=== PATIENT | female | born 1955 | race Caucasian/White ===

== ENCOUNTER → 2017-10-08 | Outpatient (CLI) | payer BC ==
[~2017-10-08] MED LIST: ASPI-232 PO; CALCTAB5 PO; IBUP-1050 PO; MULT-845 PO; PRVC/40 PO; TPM25 PO
--- NOTE | 2017-10-08 12:28 | DIAGNOSTIC IMAGING REPORT ---
ABD/PELVIS NO IV OR ORAL CONT CLINICAL HISTORY: 62 years-old Female presenting with RENAL CALCULUS. TECHNIQUE: Multidetector CT of the abdomen and pelvis was performed without the use of intravenous contrast. IV contrast: None. A dose lowering technique was used consistent with the principles of ALARA (as low as reasonably achievable). COMPARISON: None. CT DOSE (mGy.cm): The estimated cumulative dose is 852.87 mGy.cm. FINDINGS: [employer] Engineer topogram: Unremarkable. Lung bases: Lungs and pleural spaces clear. Normal heart size. No pericardial or pleural effusion. Liver: Normal morphology. Normal density. Biliary: No gross biliary ductal dilatation allowing for noncontrast technique. Normal gallbladder. Pancreas: Mild parenchymal atrophy. Spleen: Normal noncontrast appearance. Adrenal glands: Normal noncontrast appearance. Kidneys and ureters: Multiple bilateral nonobstructing renal calculi measuring up to 3 mm on the right and 7 mm on the left. No hydronephrosis. No perinephric fat infiltration. Ureters normal. Bladder: Incompletely evaluated secondary to underdistention. Pelvic organs: Uterus surgically absent. No adnexal masses. Bowel: Normal. No bowel obstruction. Trace hilar hernia. Peritoneal cavity: No free fluid or intraperitoneal gas. Lymph nodes: No gross lymphadenopathy allowing for noncontrast technique. Vasculature: Atherosclerosis of the normal caliber abdominal aorta. Abdominal wall: Normal. Musculoskeletal: Degenerative changes of the spine. IMPRESSION: 1. Bilateral nonobstructing nephrolithiasis, the largest calculi on the left. No hydronephrosis. No acute intra-abdominal pathology. 2. Postsurgical changes of hysterectomy. Electronically signed by: Rell Augustin M.D. 10/08/2017 12:26 PM Dictated Date/Time: 10/08/2017 12:21 PM
== END | disposition home or self-care (01) ==
LOC: C.CTS 11:51
PROVIDERS: ATTEND Family Medicine
DX: N20.0 Calculus of kidney (principal)

== ENCOUNTER → 2017-11-17 | Outpatient (CLI) | payer BC ==
--- NOTE | 2017-11-17 15:21 | DIAGNOSTIC IMAGING REPORT ---
KUB HISTORY: Follow-up study in a patient with nephrolithiasis NEPHROLITHIASIS COMPARISON: KUB 12/05/2014, CT abdomen and pelvis 10/08/2017 FINDINGS: The bowel gas pattern is non-obstructive. Mild to moderate formed stool throughout the colon. There is no organomegaly. Bilateral nephrolithiasis with calculi measuring up to 6 mm on the left. Calculi measure up to approximately 3 mm on the right. No definite ureteral calculi. Pelvic basin calcifications are noted suggesting probable phleboliths. No pneumoperitoneum or pneumatosis. No fracture. Degenerative changes of the spine, pelvis and hips. IMPRESSION: Bilateral nephrolithiasis without ureteral calculi identified. Electronically signed by: Raoul Rendon M.D. 11/17/2017 3:20 PM Dictated Date/Time: 11/17/2017 3:18 PM
== END | disposition home or self-care (01) ==
LOC: C.RAD 14:53
PROVIDERS: ATTEND Nurse Practitioner Family
DX: N20.0 Calculus of kidney (principal)

== ENCOUNTER 2018-05-05 21:07 | Observation (INO) ==
[2018-05-05] MEDS ORDERED: ONDANSETRON INJ 2 MG/ML 2 ML VIAL IV STA (21:37)
[2018-05-05] MEDS ORDERED: MoRPHine SULFATE 4 MG/ML 1 ML CARP\\VIAL IV STA (21:37)
[2018-05-05] MEDS ORDERED: KETOROLAC TROMETHAMINE 15 MG/ML VIAL IV STA (21:37)
[2018-05-05] MEDS ORDERED: SODIUM CHLORIDE 0.9% 500 ML IV SCH (21:45)
[2018-05-05 21:58] LABS: Basophils # (auto) 0.04 K/uL (0-0.2); Basophils % (auto) 0.3 %; Eosinophils # (auto) 0.08 K/uL (0-0.5); Eosinophils % (auto) 0.6 %; Hematocrit (blood only) 41.3 % (37-47); Hemoglobin 13.8 g/dL (12.0-16.0); Immature Granulocytes # (auto) 0.02 K/uL (0.00-0.02); Immature Granulocytes % (auto) 0.2 %; Lymphocytes # (auto) 1.93 K/uL (1.2-3.4); Lymphocytes % (auto) 15.5 %; Mean Corpuscular Hgb Conc 33.4 g/dL (32-36); Mean Platelet Volume 10.9 fL (7.4-10.4); Monocytes # (auto) 1.56 K/uL (0.11-0.59); Monocytes % (auto) 12.5 %; Neutrophils # (auto) 8.86 K/uL (1.4-6.5); Neutrophils % (auto) 70.9 %; Platelet Count 212 K/uL (130-400); RDW Coefficient of Variation 13.4 % (11.5-14.5); RDW Standard Deviation 45.7 fL (36.4-46.3); Red Blood Count 4.44 M/uL (4.2-5.4); White Blood Count 12.49 K/uL (4.8-10.8)
[2018-05-05 22:04] LABS: Appearance Urine Clear (Clear); Bacteria Urine Automated Negative (Negative); Bilirubin Urine Negative (Negative); Color Urine Yellow; Epithelial Cell Urine Auto >30 /lpf (0-5); Glucose Urine UA Negative (Negative); Ketones Urine Negative (Negative); Leukocyte Esterase Urine 3+ (Negative); Nitrite Urine Negative (Negative); Protein Urine Negative (Negative); Specific Gravity Urine 1.011 (1.000-1.030); Urobilinogen Urine Negative (Negative); pH Urine 5.5 (4.5-7.5)
[2018-05-05 22:13] LABS: Albumin Level 3.7 gm/dl (3.4-5.0); Calcium 8.6 mg/dl (8.5-10.1); Est GFR (African American) 77.3; Est GFR (Non-African American) 66.7; Potassium 3.4 mmol/L (3.5-5.1)
[2018-05-05 22:15] LABS: Bilirubin,Total 0.4 mg/dl (0.2-1); Globulin 3.7 gm/dl (2.5-4.0); Total Protein 7.4 gm/dl (6.4-8.2)
--- NOTE | 2018-05-05 22:38 | Ultrasound Report ---
US renal/blad retro comp HISTORY: Flank pain falnk pain, known stone COMPARISON: None. FINDINGS: Right kidney: Maximum dimension 10.4 cm. No evidence for hydronephrosis. 5 mm lower pole calcificatio n. Left kidney: Maximum dimension 13 cm. No evidence for hydronephrosis. Mild fullness of the renal pel vis. 4 mm mid pole calcification. Normal corticomedullary differentiation and cortical thickness. Bladder: No bladder wall thickening. The bilateral ureteral jets were identified. IMPRESSION: 1. Small bilateral nonobstructing renal calcifications. 2. No evidence for hydronephrosis. 3. Mild fullness left renal pelvis. The above report was generated using voice recognition software. It may contain grammatical, syntax or spelling errors. Electronically signed by: Jonas Bajwa M.D. 05/05/2018 10:37 PM
[2018-05-05] MEDS ORDERED: TAMSULOSIN HCL 0.4 MG CAP PO ONE (23:24)
--- NOTE | 2018-05-05 23:24 | Emergency Department Note ---
History of Present Illness General Chief complaint: Kidney Stone Stated complaint: BAD BACK PAIN, KIDNEY STONE History of Present Illness Maximum Pain Intensity: 9 This 63-year-old presents to the ER complaining of ongoing left flank and groin pain Location: Left flank and groin Quality: Severe Severity: Severe Duration: Today Timing: Today Context: Pain persisted and patient came back in. Modifying factors: better with nothing; worse with nothing Patient seen earlier today and diagnosed with a kidney stone and has an appointment tomorrow morning. She states she cannot tolerate the pain. OxyIR is not helping. She has been taking Flomax. She has had lithotripsy in the past. No stent placement. Patient denies chest pain, dyspnea, fevers, vomiting , dysuria. Home Medications Home Medications Medication Instructions Recorded Confirmed Type aspirin 81 mg PO HS 05/04/18 05/05/18 History calcium carbonate-vitamin D3 1 tab PO HS 05/04/18 05/05/18 History [Caltrate 600 + D] ibuprofen 400 mg PO QID PRN 05/04/18 05/05/18 History ondansetron 4 mg PO Q8H PRN #10 tab 05/04/18 05/05/18 Rx oxycodone [Roxicodone] 5 mg PO Q4H PRN #18 tab 05/04/18 05/05/18 Rx pravastatin 80 mg PO HS 05/04/18 05/05/18 History tamsulosin 0.4 mg PO HS 05/04/18 05/05/18 History topiramate 50 mg PO BID 05/04/18 05/05/18 History meloxicam 15 mg PO QAM 05/05/18 05/05/18 History Allergies Allergy/AdvReac Type Severity Reaction Status Date / Time No Known Allergies Allergy Verified 05/05/18 23:11 Past Med/Surg History Medical History Nephrocalcinosis Surgical History H/O: hysterectomy Social History Feels Safe at Home: Yes Smoking Status: Never smoker Preferred Language: Singaporean Review of Systems All systems reviewed & are unremarkable except as noted in HPI & below Physical Exam Vital Signs Vital Signs - 24 hr 05/05/18 21:14 05/05/18 22:04 05/05/18 22:50 Temperature 36.3 C L Temperature Source Oral Sepsis Recent Fever Within 48 Hours No Sepsis Action Taken by Nursing No Action Required Pulse Rate 74 58 L Pulse Rate [Apical] 64 Respiratory Rate 18 13 Respiratory Effort / Characteristics Non-Labored Spontaneous Respiratory Depth Normal Blood Pressure 141/84 H Blood Pressure [Left Arm] 152/81 H Blood Pressure Mean 103 Blood Pressure Mean [Left Arm] 104 Blood Pressure Position Sitting Blood Pressure Position [Left Arm] Semi-fowlers Pulse Oximetry 96 95 98 Oxygen Delivery Method Room Air Room Air Room Air 05/05/18 23:41 Temperature Temperature Source Sepsis Recent Fever Within 48 Hours Sepsis Action Taken by Nursing Pulse Rate Pulse Rate [Apical] 66 Respiratory Rate 14 Respiratory Effort / Characteristics Respiratory Depth Blood Pressure Blood Pressure [Left Arm] 136/76 Blood Pressure Mean Blood Pressure Mean [Left Arm] 96 Blood Pressure Position Blood Pressure Position [Left Arm] Semi-fowlers Pulse Oximetry 99 Oxygen Delivery Method Room Air VITALS: Vitals are noted on the nurse's note and reviewed by myself. Vital signs reviewed. GENERAL: White female who appears in pain, in no acute distress, nondiaphoretic , well-developed well-nourished. SKIN: The skin was without rashes, erythema, edema, or bruising. There is no tenting of the skin. Capillary reflex less than 2 seconds. HEAD: Normocephalic atraumatic. EARS: External auditory canals clear, tympanic membranes pearly jon without erythema or effusion bilaterally. EYES: Pupils equal round and reactive to light and accommodation. Conjunctivae without injection, sclerae without icterus. Extraocular movements intact. NOSE: Patent, turbinates without inflammation or discharge. MOUTH: Mucous membranes moist. Pharynx without erythema or exudate. Uvula midline. Airway patent. Tongue does not deviate. NECK: Supple without nuchal rigidity. No lymphadenopathy. No thyromegaly. Cervical spine is nontender. No JVD. HEART: Regular rate and rhythm LUNGS: Clear to auscultation bilaterally without wheezes, rales or rhonchi. No retractions or accessory muscle use. ABDOMEN: Positive bowel sounds x 4. Normal tympanic percussion. Soft, nontender, without masses or organomegaly. Lo sign negative. No guarding or rebound tenderness. No CVA tenderness MUSCULOSKELETAL: No muscle atrophy, erythema, or edema noted. NEURO: Patient was alert and oriented to person place and time. Normal sensation to light and sharp touch. No focal neurological deficits. Course Administered Medications Discontinued Medications Sodium Chloride (Nss) 500 mls @ 999 mls/hr IV .Q31M AMILCAR Stop: 05/05/18 22:15 Last Infusion: 05/05/18 22:38 Dose: 0 mls/hr Admin: 05/05/18 21:57 Dose: 999 mls/hr Ketorolac Tromethamine (Toradol) 10 mg IV NOW STA Stop: 05/05/18 21:38 Last Admin: 05/05/18 21:57 Dose: 10 mg Morphine Sulfate (Morphine Sulfate) 4 mg IV NOW STA Stop: 05/05/18 21:38 Last Admin: 05/05/18 21:57 Dose: 4 mg Ondansetron HCl (Zofran) 4 mg IV NOW STA Stop: 05/05/18 21:38 Last Admin: 05/05/18 21:57 Dose: 4 mg Tamsulosin HCl (Flomax) 0.4 mg PO NOW ONE Stop: 05/05/18 23:25 Last Admin: 05/05/18 23:40 Dose: 0.4 mg Medical Decision Making Medical Records Attestation: I reviewed the patient's medical records. Home Medications Current Medication List: was personally reviewed by me Laboratory Data Attestation: I reviewed the patient's lab results. Result diagrams: 05/05/18 21:49 05/05/18 21:49 Lab Results 05/05/18 05/05/18 05/05/18 Range/Units 21:15 21:49 21:49 WBC 12.49 H (4.8-10.8) K/uL RBC 4.44 (4.2-5.4) M/uL Hgb 13.8 (12.0-16.0) g/dL Hct 41.3 (37-47) % MCV 93.0 (80-100) fL MCH 31.1 (25-34) pg MCHC 33.4 (32-36) g/dL RDW Std Deviation 45.7 (36.4-46.3) fL RDW Coeff of Gume 13.4 (11.5-14.5) % Plt Count 212 (130-400) K/uL MPV 10.9 H (7.4-10.4) fL Immature Gran % (Auto) 0.2 % Neut % (Auto) 70.9 % Lymph % (Auto) 15.5 % [place] % (Auto) 12.5 % Eos % (Auto) 0.6 % Baso % (Auto) 0.3 % Immature Gran # (Auto) 0.02 (0.00-0.02) K/uL Neut # (Auto) 8.86 H (1.4-6.5) K/uL Lymph # (Auto) 1.93 (1.2-3.4) K/uL [place] # (Auto) 1.56 H (0.11-0.59) K/uL Eos # (Auto) 0.08 (0-0.5) K/uL Baso # (Auto) 0.04 (0-0.2) K/uL Sodium 139 (136-145) mmol/L Potassium 3.4 L (3.5-5.1) mmol/L Chloride 109 H (98-107) mmol/L Carbon Dioxide 22 (21-32) mmol/L Anion Gap 8.0 (3-11) BUN 19 H (7-18) mg/dl Creatinine 0.92 (0.6-1.2) mg/dl Est Cr Clr Drug Dosing 69.0 ml/min Est GFR ( Amer) 77.3 Est GFR (Non-Af Amer) 66.7 BUN/Creatinine Ratio 21.0 H (10-20) Glucose 95 (70-99) mg/dl Calcium 8.6 (8.5-10.1) mg/dl Total Bilirubin 0.4 (0.2-1) mg/dl AST 17 (15-37) U/L ALT 24 (12-78) U/L Alkaline Phosphatase 96 (45-117) U/L Total Protein 7.4 (6.4-8.2) gm/dl Albumin 3.7 (3.4-5.0) gm/dl Globulin 3.7 (2.5-4.0) gm/dl Albumin/Globulin Ratio 1.0 (0.9-2) Urine Color Yellow Urine Appearance Clear (Clear) Urine pH 5.5 (4.5-7.5) Ur Specific [place] 1.011 (1.000-1.030) Urine Protein Negative (Negative) Urine Glucose (UA) Negative (Negative) Urine Ketones Negative (Negative) Urine Blood 2+ H (Negative) Urine Nitrite Negative (Negative) Urine Bilirubin Negative (Negative) Urine Urobilinogen Negative (Negative) Ur Leukocyte Esterase 3+ H (Negative) Urine WBC (Auto) 10-30 H (0-5) /hpf Urine RBC (Auto) 5-10 H (0-4) /hpf U Hyaline Cast (Auto) 1-5 (0-5) /lpf U Epithel Cells (Auto) >30 H (0-5) /lpf Urine Bacteria (Auto) Negative (Negative) Imaging Data Attestation: I personally reviewed and interpreted this imaging study as follows : MDM Narrative Prior records/ancillary studies reviewed. Triage Nursing notes reviewed. Additional history obtained from the family. The patient's history was concerning for left flank pain. Differential diagnosis: Etiologies such as renal colic, appendicitis, diverticulitis, mesenteric ischemia, aortic pathology, infections, inflammatory bowel disease, PUD, biliary pathology, UTI, as well as others were entertained. Physical examination findings: As above. ER treatment provided: IV Toradol, morphine, Zofran On reassessment the patient felt better. Diagnostic interpretation by me: The labs revealed no leukocytosis. Urinalysis revealed hematuria. There was no sign of UTI. Imaging studies: CT was reviewed from earlier and shows left ureteral calculi a 5 mm US renal/blad retro comp HISTORY: Flank pain falnk pain, known stone COMPARISON: None. FINDINGS: Right kidney: Maximum dimension 10.4 cm. No evidence for hydronephrosis. 5 mm lower pole calcification. Left kidney: Maximum dimension 13 cm. No evidence for hydronephrosis. Mild fullness of the renal pelvis. 4 mm mid pole calcification. Normal corticomedullary differentiation and cortical thickness. Bladder: No bladder wall thickening. The bilateral ureteral jets were identified. IMPRESSION: 1. Small bilateral nonobstructing renal calcifications. 2. No evidence for hydronephrosis. 3. Mild fullness left renal pelvis. The above report was generated using voice recognition software. It may contain grammatical, syntax or spelling errors. Electronically signed by: Jonas Bajwa M.D. Consultation: A consultation was placed with Dr Tyrone reeder. The case was discussed and diagnostics were reviewed. The patient was evaluated in the ER for further treatment. It appears that the patient has isolated renal colic from a left sided stone. Patient was still in moderate amount of pain. This is her second visit today. Medicine was consulted for admission. Patient is agreeable to treatment plan. By the evaluation outlined above emergent etiologies such as appendicitis , diverticulitis, mesenteric ischemia, aortic pathology, infections, inflammatory bowel disease, PUD, biliary pathology, UTI, as well as others were deemed relatively unlikely. The pt informed about the findings as listed above. All questions were answered and pleased with the treatment. Case reviewed with my attending The chart was completed utilizing [employer] Speech voice recognition software. Grammatical errors, random word insertions, pronoun errors, and incomplete sentences are an occassional consequence of this system due to software limitations, ambient noise, and hardware issues. Any formal questions or concerns about the content, text, or information contained within the body of this dictation should be directly addressed to the physician floral assistant for clarification. Impression & Plan Left ureteral calculus, Intractable back pain Discharge Plan Visit Data Chief Complaint: Kidney Stone Stated Complaint: BAD BACK PAIN, KIDNEY STONE ED Provider: Melvin Butts ED Midlevel Provider: Vicki Jerome Discharge Problem: Left ureteral calculus, Intractable back pain Patient Disposition: Being Evaluated by Hospitalist Condition: Good Forms Stand Alone Forms: My [facility] Prescriptions Prescriptions: No Action meloxicam 15 mg Tablet 15 mg PO QAM RF: 0 topiramate 25 mg tablet 50 mg PO BID RF: 0 aspirin 81 mg Tablet,Delayed Release (Dr/Ec) 81 mg PO HS RF: 0 pravastatin 80 mg tablet 80 mg PO HS RF: 0 tamsulosin 0.4 mg capsule 0.4 mg PO HS RF: 0 ibuprofen 200 mg Tablet 400 mg PO QID PRN (Reason: Pain) RF: 0 calcium carbonate-vitamin D3 [Caltrate 600 + D] 600 mg (1,500 mg)-800 unit Tablet,Chewable 1 tab PO HS RF: 0 oxycodone [Roxicodone] 5 mg tablet 5 mg PO Q4H PRN (Reason: pain) Qty: 18 RF: 0 ondansetron 4 mg tablet,disintegrating 4 mg PO Q8H PRN (Reason: nausea and vomiting) Qty: 10 RF: 0 Referrals Referrals: Philip Morillo [Primary Care Provider] -
--- NOTE | 2018-05-05 23:37 | History & Physical Report ---
Date of Service May 05, 2018 Assessment & Plan (1) Left ureteral calculus: Flank pain -Known calculus -Morphine and toradol for pain -IVF at 80/hr -Urology consulted -continue flomax, zofran -Strain urine -NPO HLD -Continue pravatatin -Hold ASA Migraines -Continue topiramate DVTP: SCDs CODE: full Dispo: obs, med surg (2) Intractable back pain: (3) Hyperlipidemia: (4) Migraines: History of Present Illness Chief Complaint: Intractable flank pain Primary Care Provider: Philip Allyssa Morillo Patient is a pleasant 63yo F who presents to ER with intractable flank pain and nausea. She denies fevers but reports occasional chills. no vomiting, no dysuria. PMH significant for nephrocalcinosis x 2 years s/p lithotripsy, HLD, migraines. She reports that on 05/04, she had sudden onset of L flank pain that she associates with kidney stones. She presented to the ER, where a CT scan showed 5mm obstructing calculus in L ureter, mild fullness in renal pelvis. She was given oxyIR, and set up with outpatient urology appointment on 05/06. She states in the past 24 hours the OxyIR has not been able to control her pain and she remains quite nauseated when the pain gets severe. She takes flomax as part of her daily regimen. Workup in the ER included USS which showed no hydronephrosis, and continued to show calculus with renal pelvis fullness. She was given morphine, toradol, and zofran and has felt improvement since starting. Allergies Allergy/AdvReac Type Severity Reaction Status Date / Time No Known Allergies Allergy Verified 05/05/18 23:11 Home Medications Home Medications Medication Instructions Recorded Confirmed Type aspirin 81 mg PO HS 05/04/18 05/05/18 History calcium carbonate-vitamin D3 1 tab PO HS 05/04/18 05/05/18 History [Caltrate 600 + D] ibuprofen 400 mg PO QID PRN 05/04/18 05/05/18 History ondansetron 4 mg PO Q8H PRN #10 tab 05/04/18 05/05/18 Rx oxycodone [Roxicodone] 5 mg PO Q4H PRN #18 tab 05/04/18 05/05/18 Rx pravastatin 80 mg PO HS 05/04/18 05/05/18 History tamsulosin 0.4 mg PO HS 05/04/18 05/05/18 History topiramate 50 mg PO BID 05/04/18 05/05/18 History meloxicam 15 mg PO QAM 05/05/18 05/05/18 History Past Med/Surg History Medical History Nephrocalcinosis Surgical History H/O: hysterectomy Social History Current Living Situation: Spouse Current Living Situation Comment: At home Other Information That Helps Us Care for You: No Feels Safe at Home: Yes Safety Concerns: Feels Safe At This Time Smoking Status: Never smoker Do You Dip or Chew Tobacco: No Second Hand Exposure: No Hx Alcohol Use: No Hx Substance Use: No Beliefs That Will Affect Care: None Preferred Language: Sami Communication Ability: Effective Coal Trimmer Required: No Review of Systems All systems reviewed & are unremarkable except as noted in HPI & below Constitutional: + chills (occasional) and + anorexia Respiratory: no cough Cardiovascular: no chest pain Genitourinary (Female): + flank pain Physical Exam 2 Vital Signs (Past 24 Hours): Last Vital Signs Temp 36.3 C L 05/05/18 21:14 Pulse 64 05/05/18 22:50 Resp 13 05/05/18 22:50 BP 152/81 H 05/05/18 22:50 Pulse Ox 98 05/05/18 22:50 Constitutional: WD/WN, vitals as above (not toxic appearing) Eyes: PERRL, conjunctivae normal, anicteric sclerae ENMT: external ear and nose normal, oropharynx normal Neck: normal visual inspection Respiratory: normal respiratory effort, lungs clear to auscultation Cardiovascular: RRR, no murmur, no edema Gastrointestinal (Abdomen): Percussion/Palpation: + abdomen tender (L flank, L CVA tenderness ) Musculoskeletal: no cyanosis or clubbing, extremities motor strength 5/5 Skin: no rashes, warm and dry Neurologic: PERRL, EOMI, accommodation nl, no face palsy, no dysarthria Psychiatric: A+Ox3, euthymic affect Results & Data Laboratory Results 05/05/18 05/05/18 05/05/18 Range/Units 21:49 21:49 21:15 WBC 12.49 H (4.8-10.8) K/uL RBC 4.44 (4.2-5.4) M/uL Hgb 13.8 (12.0-16.0) g/dL Hct 41.3 (37-47) % MCV 93.0 (80-100) fL MCH 31.1 (25-34) pg MCHC 33.4 (32-36) g/dL RDW Std Deviation 45.7 (36.4-46.3) fL RDW Coeff of Gume 13.4 (11.5-14.5) % Plt Count 212 (130-400) K/uL MPV 10.9 H (7.4-10.4) fL Immature Gran % (Auto) 0.2 % Neut % (Auto) 70.9 % Lymph % (Auto) 15.5 % [place] % (Auto) 12.5 % Eos % (Auto) 0.6 % Baso % (Auto) 0.3 % Immature Gran # (Auto) 0.02 (0.00-0.02) K/uL Neut # (Auto) 8.86 H (1.4-6.5) K/uL Lymph # (Auto) 1.93 (1.2-3.4) K/uL [place] # (Auto) 1.56 H (0.11-0.59) K/uL Eos # (Auto) 0.08 (0-0.5) K/uL Baso # (Auto) 0.04 (0-0.2) K/uL Sodium 139 (136-145) mmol/L Potassium 3.4 L (3.5-5.1) mmol/L Chloride 109 H (98-107) mmol/L Carbon Dioxide 22 (21-32) mmol/L Anion Gap 8.0 (3-11) BUN 19 H (7-18) mg/dl Creatinine 0.92 (0.6-1.2) mg/dl Est Cr Clr Drug Dosing 69.0 ml/min Est GFR ( Amer) 77.3 Est GFR (Non-Af Amer) 66.7 BUN/Creatinine Ratio 21.0 H (10-20) Glucose 95 (70-99) mg/dl Calcium 8.6 (8.5-10.1) mg/dl Total Bilirubin 0.4 (0.2-1) mg/dl AST 17 (15-37) U/L ALT 24 (12-78) U/L Alkaline Phosphatase 96 (45-117) U/L Total Protein 7.4 (6.4-8.2) gm/dl Albumin 3.7 (3.4-5.0) gm/dl Globulin 3.7 (2.5-4.0) gm/dl Albumin/Globulin Ratio 1.0 (0.9-2) Urine Color Yellow Urine Appearance Clear (Clear) Urine pH 5.5 (4.5-7.5) Ur Specific [place] 1.011 (1.000-1.030) Urine Protein Negative (Negative) Urine Glucose (UA) Negative (Negative) Urine Ketones Negative (Negative) Urine Blood 2+ H (Negative) Urine Nitrite Negative (Negative) Urine Bilirubin Negative (Negative) Urine Urobilinogen Negative (Negative) Ur Leukocyte Esterase 3+ H (Negative) Urine WBC (Auto) 10-30 H (0-5) /hpf Urine RBC (Auto) 5-10 H (0-4) /hpf U Hyaline Cast (Auto) 1-5 (0-5) /lpf U Epithel Cells (Auto) >30 H (0-5) /lpf Urine Bacteria (Auto) Negative (Negative) Medications Administered Current Inpatient Medications Aspirin (Ecotrin Ectab) 81 mg PO HS AMILCAR Stop: 06/05/18 20:59 Pravastatin Sodium (Pravachol) 80 mg PO HS AMILCAR Stop: 06/05/18 20:59 Tamsulosin HCl (Flomax) 0.4 mg PO HS AMILCAR Stop: 06/05/18 20:59 Topiramate (Topamax) 50 mg PO BID AMILCAR Stop: 06/05/18 08:59 Code Status & VTE Plan Code Status full VTE Prophylaxis Plan VTE Prophylaxis will be ordered: Yes Supervising Physician Co-Signing Physician Notes Patient is a 63yo female with history of HLP, Migraine presenting with left ureteral calculus. Patient with history of renal stones. Had sudden onset of intractable left flank pain with nausea, chills. Imaging revealed a 5mm obstructing calculus in the left ureter. On exam she is afebrile, hemodynamically stable, non-toxic in appearance Pain in abdomen and left flank Remainder of exam unremarkable Labs and images reviewed. Significant for WBC=12.49 Assessment/Plan: Admit to medical floor. IVF, Morphine, Toradol, Zofran PRN Urology consultation Flomax Remainder of plan as above Resident Activity Tracking Resident Involvement: Resident Care Provided Care Provided: Adult Hospital Medicine
[2018-05-06] MEDS ORDERED: KETOROLAC TROMETHAMINE 15 MG/ML VIAL IV PRN (01:35)
[2018-05-06] MEDS ORDERED: ACETAMINOPHEN 325 MG TAB PO PRN (01:35)
[2018-05-06] MEDS ORDERED: POLYETHYLENE (MIRALAX) 17 GM PACK PO PRN (01:35)
[2018-05-06] MEDS ORDERED: ONDANSETRON INJ 2 MG/ML 2 ML VIAL IV PRN (01:35)
[2018-05-06] MEDS ORDERED: MoRPHine SULFATE 4 MG/ML 1 ML CARP\\VIAL IV PRN (01:35)
[2018-05-06] MEDS ORDERED: MAGNESIUM HYDROXIDE SUSP 30 ML UDC PO PRN (01:35)
[2018-05-06] MEDS ORDERED: ALUMINUM/MAGNESIUM SUSP 30 ML UDC PO PRN (01:35)
[2018-05-06] MEDS ORDERED: SODIUM CHLORIDE 0.9% 1000ML 1,000 ML IV SCH (01:45)
[2018-05-06] MEDS ORDERED: INFLUENZA VIRUS QUAD VACCINE 0.5 ML SYR IM ONE (05:30)
[2018-05-06] MEDS ORDERED: INFLUENZA ADMINISTRATION CHARGE ONE (05:30)
[2018-05-06 07:14] LABS: Basophils # (auto) 0.03 K/uL (0-0.2); Basophils % (auto) 0.5 %; Eosinophils # (auto) 0.11 K/uL (0-0.5); Eosinophils % (auto) 1.7 %; Hematocrit (blood only) 37.6 % (37-47); Hemoglobin 12.5 g/dL (12.0-16.0); Immature Granulocytes # (auto) 0.01 K/uL (0.00-0.02); Immature Granulocytes % (auto) 0.2 %; Lymphocytes # (auto) 1.52 K/uL (1.2-3.4); Lymphocytes % (auto) 23.2 %; Mean Corpuscular Hgb Conc 33.2 g/dL (32-36); Mean Corpuscular Volume 93.3 fL (80-100); Mean Platelet Volume 11.2 fL (7.4-10.4); Monocytes # (auto) 1.12 K/uL (0.11-0.59); Monocytes % (auto) 17.1 %; Neutrophils # (auto) 3.76 K/uL (1.4-6.5); Neutrophils % (auto) 57.3 %; Platelet Count 197 K/uL (130-400); RDW Coefficient of Variation 13.6 % (11.5-14.5); RDW Standard Deviation 46.5 fL (36.4-46.3); Red Blood Count 4.03 M/uL (4.2-5.4); White Blood Count 6.55 K/uL (4.8-10.8)
[2018-05-06 07:55] LABS: BUN Creatinine Ratio 19.7 (10-20); Calcium 7.9 mg/dl (8.5-10.1); Creatinine Clr Calc Pharmacy 79.6 ml/min; Est GFR (African American) 88.9; Est GFR (Non-African American) 76.7; Potassium 3.8 mmol/L (3.5-5.1)
[2018-05-06] MEDS ORDERED: TOPIRAMATE 25 MG TAB PO SCH (09:00)
--- NOTE | 2018-05-06 09:33 | Urology Consultation ---
Date of Consultation May 06, 2018 Assessment & Plan (1) Left ureteral calculus: 5mm L proximal ureteral stone, bilateral renal stones VSS, afebrile overnight Cr 0.92, WBC improved. Pt states pain is controlled presently with tylenol only, rating 3/10 Some nausea, denies vomiting. Will check KUB today. - If stone visible on Xray, will entertain outpatient ESWL therapy vs Maximum expulsion therapy - Continue Tamsulosin No acute intervention indicated presently, Will advance diet. UPDATE: KUB: L 5mm UPJ stone clearly visible, good candidate for ESWL therapy. d/c toradol, avoid NSAIDs. Spoke to patient and discussed options for ESWL vs observation vs ureteroscopy. She would like to proceed with d/c and outpatient ESWL on Friday. Okay to d/c home later today from perspective with pain control and tamsulosin as long as pain controlled, remains afebrile. *Please have patient report to [facility] on [address] directly after d/c for outpatient H&P/ESWL paperwork. We are expecting her. Thank you! History of Present Illness Reason for Consultation: ureteral stone Requesting Physician: ureteral stone Attending Physician: Yulissa Elam MD History of Present Illness 63yo F presented to the ED x2 occasions for recurrent L flank and nausea. Established with our service for nephrolithiasis Hx ESWL x2 for 12mm R ureteral stone in 2014 CT reveals 5mm L proximal ureteral stone with mild hydronephrosis Bilateral renal stones, stone burden R >L Pt sleeping in bed but easily arousable. Pt states pain is controlled presently with tylenol only. Has not required narcotic pain control since ED. Some nausea, denies vomiting. Denies gross hematuria. Some urgency/frequency - indicative of possible stone migration. Allergies Allergy/AdvReac Type Severity Reaction Status Date / Time No Known Allergies Allergy Verified 05/05/18 23:11 Home Medications Home Medications Medication Instructions Recorded Confirmed Type aspirin 81 mg PO HS 05/04/18 05/05/18 History calcium carbonate-vitamin D3 1 tab PO HS 05/04/18 05/05/18 History [Caltrate 600 + D] ibuprofen 400 mg PO QID PRN 05/04/18 05/05/18 History ondansetron 4 mg PO Q8H PRN #10 tab 05/04/18 05/05/18 Rx oxycodone [Roxicodone] 5 mg PO Q4H PRN #18 tab 05/04/18 05/05/18 Rx pravastatin 80 mg PO HS 05/04/18 05/05/18 History tamsulosin 0.4 mg PO HS 05/04/18 05/05/18 History topiramate 50 mg PO BID 05/04/18 05/05/18 History meloxicam 15 mg PO QAM 05/05/18 05/05/18 History Patient History Medical History Nephrocalcinosis Surgical History H/O: hysterectomy Social History Current Living Situation: Spouse Current Living Situation Comment: At home Other Information That Helps Us Care for You: No Feels Safe at Home: Yes Safety Concerns: Feels Safe At This Time Smoking Status: Never smoker Do You Dip or Chew Tobacco: No Second Hand Exposure: No Hx Alcohol Use: No Hx Substance Use: No Beliefs That Will Affect Care: None Preferred Language: [place] Communication Ability: Effective Digital Strategist Senior Manager Required: No Review of Systems Constitutional: no fever and no chills Eyes: no problem reported Ear, Nose, Mouth, Throat: no ear pain Respiratory: no cough and no dyspnea Cardiovascular: no chest pain Gastrointestinal: + nausea; no abdominal pain and no vomiting Genitourinary (Female): + urinary urgency; no dysuria, no urinary hesitancy and no hematuria Musculoskeletal: no back pain Integumentary: no acne Neurologic: no paralysis and no loss of sensation Psychiatric: no behavioral changes Endocrine: + fatigue; no polydipsia Hematologic / Lymphatic: no unexplained weight loss Physical Exam 2 Vital Signs (Past 24 Hours): Last Vital Signs Temp 36.9 C 05/06/18 07:41 Pulse 59 L 05/06/18 07:41 Resp 18 05/06/18 07:41 BP 121/77 05/06/18 07:41 Pulse Ox 95 05/06/18 07:41 Constitutional: well developed and well nourished; no acute distress Eyes: no nystagmus ENMT: Ears: no hearing impairment Neck: + trachea not midline Respiratory: no respiratory distress and does not use accessory muscles Cardiovascular: Vessels: no JVD Gastrointestinal (Abdomen): Inspection/Auscultation: abdomen not distended and no abdominal edema Musculoskeletal: Head/Neck/Chest: normocephalic Skin: no rashes, warm and dry Psychiatric: A+Ox3, euthymic affect Lymphatic: no lymphadenopathy Results & Data Laboratory Results Laboratory Results - last 48 hr 05/05/18 05/05/18 05/05/18 21:15 21:49 21:49 WBC 12.49 H RBC 4.44 Hgb 13.8 Hct 41.3 MCV 93.0 MCH 31.1 MCHC 33.4 RDW Std Deviation 45.7 RDW Coeff of Gume 13.4 Plt Count 212 MPV 10.9 H Immature Gran % (Auto) 0.2 Neut % (Auto) 70.9 Lymph % (Auto) 15.5 [place] % (Auto) 12.5 Eos % (Auto) 0.6 Baso % (Auto) 0.3 Immature Gran # (Auto) 0.02 Neut # (Auto) 8.86 H Lymph # (Auto) 1.93 [place] # (Auto) 1.56 H Eos # (Auto) 0.08 Baso # (Auto) 0.04 Sodium 139 Potassium 3.4 L Chloride 109 H Carbon Dioxide 22 Anion Gap 8.0 BUN 19 H Creatinine 0.92 Est Cr Clr Drug Dosing 69.0 Est GFR ( Amer) 77.3 Est GFR (Non-Af Amer) 66.7 BUN/Creatinine Ratio 21.0 H Glucose 95 Calcium 8.6 Total Bilirubin 0.4 AST 17 ALT 24 Alkaline Phosphatase 96 Total Protein 7.4 Albumin 3.7 Globulin 3.7 Albumin/Globulin Ratio 1.0 Urine Color Yellow Urine Appearance Clear Urine pH 5.5 Ur Specific [place] 1.011 Urine Protein Negative Urine Glucose (UA) Negative Urine Ketones Negative Urine Blood 2+ H Urine Nitrite Negative Urine Bilirubin Negative Urine Urobilinogen Negative Ur Leukocyte Esterase 3+ H Urine WBC (Auto) 10-30 H Urine RBC (Auto) 5-10 H U Hyaline Cast (Auto) 1-5 U Epithel Cells (Auto) >30 H Urine Bacteria (Auto) Negative Hepatitis C Ab Screen 05/06/18 05/06/18 05/06/18 06:55 06:55 06:55 WBC 6.55 RBC 4.03 L Hgb 12.5 Hct 37.6 MCV 93.3 MCH 31.0 MCHC 33.2 RDW Std Deviation 46.5 H RDW Coeff of Gume 13.6 Plt Count 197 MPV 11.2 H Immature Gran % (Auto) 0.2 Neut % (Auto) 57.3 Lymph % (Auto) 23.2 [place] % (Auto) 17.1 Eos % (Auto) 1.7 Baso % (Auto) 0.5 Immature Gran # (Auto) 0.01 Neut # (Auto) 3.76 Lymph # (Auto) 1.52 [place] # (Auto) 1.12 H Eos # (Auto) 0.11 Baso # (Auto) 0.03 Sodium 143 Potassium 3.8 Chloride 114 H Carbon Dioxide 24 Anion Gap 5.0 BUN 16 Creatinine 0.82 Est Cr Clr Drug Dosing 79.6 Est GFR ( Amer) 88.9 Est GFR (Non-Af Amer) 76.7 BUN/Creatinine Ratio 19.7 Glucose 89 Calcium 7.9 L Total Bilirubin AST ALT Alkaline Phosphatase Total Protein Albumin Globulin Albumin/Globulin Ratio Urine Color Urine Appearance Urine pH Ur Specific [place] Urine Protein Urine Glucose (UA) Urine Ketones Urine Blood Urine Nitrite Urine Bilirubin Urine Urobilinogen Ur Leukocyte Esterase Urine WBC (Auto) Urine RBC (Auto) U Hyaline Cast (Auto) U Epithel Cells (Auto) Urine Bacteria (Auto) Hepatitis C Ab Screen Neg
--- NOTE | 2018-05-06 09:57 | XRay Report ---
XR KUB CLINICAL HISTORY: Nephrolithiasis. Left UPJ calculus. Evaluate for migration. COMPARISON STUDY: 05/04/2018 FINDINGS: The renal shadows are partially obscured overlying bowel gas and fecal material. Multiple b ilateral renal calculi are evident. Air is no pathologic bowel dilatation. There is no change the pos ition of the presumed 5 mm left UPJ calculus. IMPRESSION: 1. Bilateral nephrolithiasis 2. No change in the position of the suspected 5 millimeter left UPJ calculus Electronically signed by: Bob Ochoa M.D. 05/06/2018 9:55 AM
[2018-05-06] MEDS ORDERED: CIPROFLOXACIN 500 MG TAB PO STA (11:41)
--- NOTE | 2018-05-06 12:08 | XRay Report ---
XR chest 1V portable HISTORY: preop outpatient procedure COMPARISON: Chest 10/04/2014. FINDINGS: The lungs are clear. Cardiac silhouette is normal in size. No pleural effusions. No pneumot horax. IMPRESSION: No acute process. Electronically signed by: Jono Shah M.D. 05/06/2018 12:06 PM
--- NOTE | 2018-05-06 14:01 | Discharge Summary ---
Date of Service May 06, 2018 Admission HPI Per Admitting Provider Patient is a pleasant 63yo F who presents to ER with intractable flank pain and nausea. She denies fevers but reports occasional chills. no vomiting, no dysuria. PMH significant for nephrocalcinosis x 2 years s/p lithotripsy, HLD, migraines. She reports that on 05/04, she had sudden onset of L flank pain that she associates with kidney stones. She presented to the ER, where a CT scan showed 5mm obstructing calculus in L ureter, mild fullness in renal pelvis. She was given oxyIR, and set up with outpatient urology appointment on 05/06. She states in the past 24 hours the OxyIR has not been able to control her pain and she remains quite nauseated when the pain gets severe. She takes flomax as part of her daily regimen. Workup in the ER included USS which showed no hydronephrosis, and continued to show calculus with renal pelvis fullness. She was given morphine, toradol, and zofran and has felt improvement since starting. Principal Diagnosis Ureterolithiasis Discharge Exam Constitutional WD/WN, vitals as above Eyes PERRL, conjunctivae normal, anicteric sclerae ENMT external ear and nose normal, oropharynx normal Neck trachea midline, no thyromegaly Respiratory normal respiratory effort, lungs clear to auscultation Cardiovascular RRR, no murmur, no edema Gastrointestinal (Abdomen) Inspection/Auscultation: abdomen normal to inspection and normal bowel sounds Percussion/Palpation: + abdomen tender (minimal, in LLQ without guarding or rebound) and abdomen soft Musculoskeletal Extremities: extremities normal to inspection; no cyanosis and no clubbing Skin no rashes, warm and dry Neurologic moves all extremities and awake; no focal motor deficits Psychiatric A+Ox3, euthymic affect Discharge Data Allergies Allergy/AdvReac Type Severity Reaction Status Date / Time No Known Allergies Allergy Verified 05/05/18 23:11 Consultations Urology Ordered Studies 05/05/18 21:37 US renal/blad retro comp Stat CXR KUB Hospital Course (1) Left ureteral calculus: Flank pain -Known calculus, 5 mg prox urter, here with intractable pain. Pain control given and now improved No significant hydro, no renal failure UA with possible UTI, Ur cx pending -ok to ok home with oxycodone prn, tylenol prn -asked to avoid all NSAIDs in preparation for ESWL this Friday -has appt with Urology today for preop assessment and will go there right after discharge today -start Cipro 500mg po bid x 10 day course, f/u on Urine culture should be done by Urology or PCP after discharge -received IVFs and now encouraged to drink plenty of fluids -continue FLomax -Urology consulted-appreciate consultation HLD -Continue pravatatin -Hold ASA for procedure Migraines -Continue topiramate -hold all NSAIDs for upcoming Urol procedure DVTP: SCDs were provided CODE: full Dispo: stable for dc to home (2) Intractable back pain: (3) Hyperlipidemia: (4) Migraines: Total Time Total Time Spent Total Time Spent (In Minutes): >30 min Total Time Includes: Examination of the Patient, Discharge Planning, Medication Reconciliation and Communication With Other Providers (Urology SHEET LAYER) Discharge Plan Discharge Items Patient Disposition: Home - Self-Care Reason For Visit: INTRACTABLE FLANK PAIN Discharge Diagnosis: Kidney stone Condition: Good Discharge Goals: Decrease discomfort, Diagnostic testing, Improve disease control, Learn about illness and Therapeutic intervention Activity: As commented below Lifting: None Bathing: No limitations Exercise/Sports: As tolerated Driving/Machine Use: No limitations Driving/Machine Use Comment: But no driving when taking oxycodone Non-emergency contact: Primary Care Provider and Urologist Call non-emergency contact if: you have any medication questions, your symptoms worsen, your pain is not controlled, your pain is worsening, your pain is unusual for you and your temperature is above 101 Follow-up/Referrals: Philip Morillo [Primary Care Provider] - 05/11/18 2:15 pm (Please, follow up at Dr. Morillo's office in [place] with his assistant vice president, Alice, on FridayMay 11 at 2:15 pm. *If you need to change this appointment, call their office at [phone].) Mercedes Roberts CRNP [Nurse Practitioner] - 05/06/18 2:30 pm (Please, follow up this afternoon at [facility] Office at 2:30 pm. *This office is located at [address] in [place]. If you need to change this appointment, call the office at [phone].) Diet: Heart Healthy [facility] Provider Instructions: Please follow up with Urology immediately following discharge at their office. They will do your preoperative paperwork for a procedure on Friday. Please continue the Flomax, oxycodone as needed, and the new antibiotic, Cipro. Oxycodone can make you constipated so please drink plenty of fluids and take a laxative as needed. Do NOT take your meloxicam, ibuprofen, or aspirin until the Urologist says it is ok to restart as these can thin the blood. Please follow up with your PCP as scheduled for you. Prescriptions: New acetaminophen [Mapap (acetaminophen)] 325 mg Tablet 650 mg PO Q4H PRN (Reason: pain) Qty: 30 RF: 0 ciprofloxacin HCl 500 mg Tablet 500 mg PO BID Qty: 20 RF: 0 polyethylene glycol 3350 [Miralax] 17 gram Powder In Packet 17 g PO DAILY PRN (Reason: constipation) Qty: 30 RF: 0 Continue topiramate 25 mg tablet 50 mg PO BID RF: 0 pravastatin 80 mg tablet 80 mg PO HS RF: 0 tamsulosin 0.4 mg capsule 0.4 mg PO HS RF: 0 oxycodone [Roxicodone] 5 mg tablet 5 mg PO Q4H PRN (Reason: pain) Qty: 18 RF: 0 ondansetron 4 mg tablet,disintegrating 4 mg PO Q8H PRN (Reason: nausea and vomiting) Qty: 10 RF: 0 Discontinued meloxicam 15 mg Tablet 15 mg PO QAM RF: 0 aspirin 81 mg Tablet,Delayed Release (Dr/Ec) 81 mg PO HS RF: 0 ibuprofen 200 mg Tablet 400 mg PO QID PRN (Reason: Pain) RF: 0 calcium carbonate-vitamin D3 [Caltrate 600 + D] 600 mg (1,500 mg)-800 unit Tablet,Chewable 1 tab PO HS RF: 0 Stand-Alone Forms: [facility] Discharge Orders: Discharge Order (Routine); Ordered 05/06/18 Ordered By: Yulissa Elam Admission Data Admit Date/Time: 05/06/18 00:20 Attending Provider: Yulissa Elam Admit Provider: Rufina Arriaga Primary Care Provider: Philip Morillo Other Providers: Aarti Hansen Anthony Lay I. Service: Medical
[2018-05-06] MEDS ORDERED: PRAVASTATIN SOD 40 MG TAB PO SCH (21:00)
[2018-05-06] MEDS ORDERED: TAMSULOSIN HCL 0.4 MG CAP PO SCH (21:00)
[2018-05-06] MEDS ORDERED: ASPIRIN 81 MG ECTAB PO SCH (21:00)
[2018-05-06] MEDS ORDERED: CIPROFLOXACIN 500 MG TAB PO SCH (21:00)
== END 2018-05-06 14:30 | disposition home or self-care (01) ==
LOC: 3W 21:07 → ED 21:07 → SUATTDRO 05-06 00:20 → 3W 05-06 01:11